=== PATIENT | female | born 1980 | race Caucasian/White ===

== ENCOUNTER 2017-06-08 17:04 | Day surgery (SDC) | payer BC ==
[2017-06-08] MEDS ORDERED: Sodium Chloride 0.9% 2.5 ML Syringe FLUSH PRN (17:06)
[2017-06-08] MEDS ORDERED: Sodium Chloride 0.9% 10 ML Syringe FLUSH PRN (17:06)
[2017-06-08] MEDS ORDERED: fentaNYL 100 MCG/2 ML SDV ONE ×2 (17:28→19:06)
[2017-06-08] MEDS ORDERED: Ondansetron 4 MG/2 ML SDV ONE (17:28)
[2017-06-08] MEDS ORDERED: Midazolam 1 MG/ML 2 ML SDV ONE (17:28)
[2017-06-08] MEDS ORDERED: Propofol 200 MG/20 ML SDV ONE (17:28)
[2017-06-08] MEDS ORDERED: Lidocaine 2% 5 ML SDV ONE (17:28)
[2017-06-08] MEDS ORDERED: Rocuronium 10 MG/ML 10 ML Syringe ONE (17:28)
[2017-06-08] MEDS ORDERED: Succinylcholine/Normal Saline 200 MG/10 ML Syringe ONE (17:28)
[2017-06-08] MEDS ORDERED: Vasopressin 20 Units/1 ML MDV ONE ×2 (17:29→20:20)
[2017-06-08] MEDS ORDERED: Bupivacaine 0.25% 10 ML SDV ONE (17:30)
[2017-06-08] MEDS ORDERED: ePHEDrine 50 MG/ML SDV ONE (18:36)
--- NOTE | 2017-06-08 18:42 | PCM.PREANE ---
Preanesthetic Assessment - Anesthesia/Transfusion/Family Hx Anesthesia History: Prior Anesthesia Without Reaction Family History of Anesthesia Reaction: No Transfusion History: No Prior Transfusion(s) - Review of Systems General: No Symptoms Pulmonary: No Symptoms Cardiovascular: No Symptoms Gastrointestinal: No Symptoms Neurological: No Symptoms Other: Reports: None - Physical Assessment NPO Status Date: 06/08/17 NPO Status Time: 13:30 ASA Class: 2E Mental Status: Alert & Oriented x3 Airway Class: Mallampati = 1 Dentition: Reports: Broken Tooth/Teeth Thyro-Mental Finger Breadths: 3 Mouth Opening Finger Breadths: 3 ROM/Head Extension: Full Lungs: Clear to Auscultation, Normal Respiratory Effort Cardiovascular: Regular Rate, Regular Rhythm - Lab Values: Laboratory Last Values WBC 7.68 K/uL (4.0-11.0) 06/08/17 17: RBC 4.36 M/uL (4.30-5.90) 06/08/17 17: Hgb 12.3 g/dL (12.0-16.0) 06/08/17 17: Hct 35.4 % (36.0-46.0) L 06/08/17 17: MCV 81.2 fL (80.0-98.0) 06/08/17 17: MCH 28.2 pg (27.0-32.0) 06/08/17 17: MCHC 34.7 g/dL (31.0-37.0) 06/08/17 17: RDW Std Deviation 41.3 fl (28.0-62.0) 06/08/17: RDW Coeff of Red 14 % (11.0-15.0) 06/08/17 17: Plt Count 226 K/uL (150-400) 06/08/17 17: MPV 9.90 fL (7.40-12.00) 06/08/17: Nucleated RBC % 0.0 /100WBC 06/08/17: Nucleated RBCs # 0 K/uL 06/08/17 17: HCG, Quant 3076.4 mIU/mL 06/08/17 17: Blood Type A POSITIVE 06/08/17: Antibody Screen NEGATIVE 06/08/17: - Allergies Allergies/Adverse Reactions: Allergies Allergy/AdvReac Type Severity Reaction Status Date / Time No Known Allergies Allergy Verified 06/08/17 18:31 - Acknowledgements Anesthesia Type Planned: General Anesthesia (with RSI for full stomach) Pt an Appropriate Candidate for the Planned Anesthesia: Yes Alternatives and Risks of Anesthesia Discussed w Pt/Guardian: Yes Pt/Guardian Understands and Agrees with Anesthesia Plan: Yes PreAnesthesia Questionnaire HEENT History: Reports: None Cardiovascular History: Reports: None Respiratory History: Reports: None Gastrointestinal History: Reports: None Genitourinary History: Reports: None Musculoskeletal History: Reports: None Neurological History: Reports: None Psychiatric History: Reports: Anxiety, Depression Endocrine/Metabolic History: Reports: None Hematologic History: Reports: None Immunologic History: Reports: None Oncologic (Cancer) History: Reports: None Dermatologic History: Reports: None - Infectious Disease History Infectious Disease History: Reports: None - Past Surgical History Other HEENT Surgeries/Procedures: Bilateral Ear Tubes - CURRENT (IN HOUSE) MEDS Current Meds: Current Medications Sodium Chloride (Saline Flush) 10 ml FLUSH ASDIRECTED PRN PRN Reason: Keep Vein Open Sodium Chloride (Saline Flush) 2.5 ml FLUSH ASDIRECTED PRN PRN Reason: Keep Vein Open Discontinued Medications Bupivacaine HCl (Sensorcaine-Mpf 0.25%) Confirm Administered Dose 20 ml .ROUTE .STK-MED ONE Stop: 06/08/17 17:31 Fentanyl (Sublimaze) Confirm Administered Dose 200 mcg .ROUTE .STK-MED ONE Stop: 06/08/17 17:29 Lidocaine (Xylocaine-Mpf 2%) Confirm Administered Dose 5 ml .ROUTE .STK-MED ONE Stop: 06/08/17 17:29 Midazolam HCl (Versed 1 Mg/Ml) Confirm Administered Dose 2 mg .ROUTE .STK-MED ONE Stop: 06/08/17 17:29 Ondansetron HCl (Zofran) Confirm Administered Dose 4 mg .ROUTE .STK-MED ONE Stop: 06/08/17 17:29 Propofol (Diprivan 20 Ml) Confirm Administered Dose 200 mg .ROUTE .STK-MED ONE Stop: 06/08/17 17:29 Rocuronium [place] (Zemuron) Confirm Administered Dose 100 mg .ROUTE .STK-MED ONE Stop: 06/08/17 17:29 Succinylcholine Chloride (Succinylcholine In Ns Pf) Confirm Administered Dose 200 mg .ROUTE .STK-MED ONE Stop: 06/08/17 17:29 Vasopressin (Vasopressin) Confirm Administered Dose 20 units .ROUTE .STK-MED ONE Stop: 06/08/17 17:30
[2017-06-08] MEDS ORDERED: fentaNYL 100 MCG/2 ML SDV IVPUSH PRN (19:35)
[2017-06-08] MEDS ORDERED: Ketorolac 30 MG/ML SDV ONE (19:40)
--- NOTE | 2017-06-08 20:34 | PCM.POSTAN ---
POST ANESTHESIA ASSESSMENT - MENTAL STATUS Mental Status: Alert, Oriented - RESPIRATORY Respiratory Status: Respiratory Rate WNL, Airway Patent, O2 Saturation Stable - CARDIOVASCULAR CV Status: Pulse Rate WNL, Blood Pressure Stable - GASTROINTESTINAL GI Status: No Symptoms - POST OP HYDRATION Hydration Status: Adequate & Stable
--- NOTE | 2017-06-08 20:37 | PCM.OPNOTE ---
- General Post-Op/Procedure Note Date of Surgery/Procedure: 06/08/17 Operative Procedure(s): suction dilation and curettage laparoscopic right salpingostomy for ectopic . Findings: right tubal ectopic , unruptured. Pre Op Diagnosis: right tubal ectopic Post-Op Diagnosis: Same Anesthesia Technique: General ET Tube Primary Surgeon: Aletha Ferreira Anesthesia Provider: Owen Grewal Pathology: uterine contents, right tubal contents Fluid Replacement, Intraop: 1,500 EBL in mLs: 20 Complications: None Known Condition: Good Free Text/Narrative:: Intake & Output 06/08/17 06/08/17 06/08/17 06:59 14:59 22:59 Intake Total 1899 Balance 190
[2017-06-08 23:42] VITALS: BP 112/59
--- NOTE | 2017-06-08 23:45 | PCM48HPAN ---
Post Anesthesia Note - EVALUATION WITHIN 48HRS OF ANESTHETIC Vital Signs in Normal Range: Yes Patient Participated in Evaluation: Yes Respiratory Function Stable: Yes Airway Patent: Yes Cardiovascular Function Stable: Yes Hydration Status Stable: Yes Pain Control Satisfactory: Yes Nausea and Vomiting Control Satisfactory: Yes Mental Status Recovered: Yes
--- NOTE | 2017-06-09 01:40 | OR ---
SURGEON: Aletha Ferreira M.D. DATE OF PROCEDURE: 06/08/2017 PREOPERATIVE DIAGNOSIS: Right tubal ectopic . POSTOPERATIVE DIAGNOSIS: Right tubal ectopic . PROCEDURE: DICTATION ENDS HERE VENTURA ROE /[id number]
--- NOTE | 2017-06-09 02:00 | OR ---
SURGEON: Aletha Ferreira M.D. DATE OF PROCEDURE: 06/08/2017 PREOPERATIVE DIAGNOSIS: Right tubal ectopic . POSTOPERATIVE DIAGNOSIS: Right tubal ectopic . PROCEDURE: Laparoscopic right salpingostomy with suction D and C. ANESTHESIA: General endotracheal. ESTIMATED BLOOD LOSS: Less than 20 mL. FLUIDS: 1500 mL crystalloid. FINDINGS: Normal-appearing left tube and ovary. Normal-appearing right ovary. There was an ectopic in the mid right tube. COMPLICATIONS: None known. DISPOSITION: Stable to recovery. INDICATIONS: This is a 37-year-old female. She has presented with vaginal bleeding over the past week. She has an abnormally rising HCG level, which is now over 2600 with no intrauterine and a 2.1 cm ectopic in the right tube. She was offered methotrexate versus salpingostomy versus salpingectomy with salpingectomy being 100% cure of the ectopic but slightly decreasing her likelihood of successful in the future, salpingostomy requiring followup with HCG levels and at up to 15% risk of recurrence, and methotrexate also requiring close followup. After discussing options as she is a candidate for any of the three options, she desires to proceed with right salpingostomy with a possible right salpingectomy and a suction D and C. Risks were discussed including bleeding; infection; injury to bowel, bladder, blood vessels, ureters, or other organs; risks of thromboembolic event; and risk of anesthesia. Understanding all these risks, she does desire to proceed. DESCRIPTION OF PROCEDURE: With the patient in dorsal lithotomy position, under adequate general endotracheal anesthesia, the abdomen was prepped with chlorhexidine. The perineum and vagina were prepped with Betadine and draped in the usual fashion for laparoscopic surgery. Bimanual examination revealed an 8-week size anteverted uterus. Speculum was placed in the vagina. The cervix was dilated to an 8 mm Hegar dilator, and the suction curette was placed. An appropriate time-out was held and prior to starting the procedure, a suction curette was placed to the uterine fundus and retracted repetitively with a small amount of whitish tissue obtained. 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 2 mL of 0.25% Marcaine was injected inferior to the umbilicus. A vertical 5 mm incision was made with a scalpel and the anterior abdominal wall was elevated. A Veress needle was inserted. Hanging drop test confirmed intraperitoneal placement, and opening pressure of CO2 was 3 mmHg. A 5 mm port was placed inferior to the umbilicus. The laparoscope was placed into the abdominal cavity. There was no evidence of any trauma to the internal organs with the port placement. The uterus was elevated. Findings were as noted above. Two additional ports were placed 2 cm medial and cephalad from the anterior-superior iliac spine on the right and the left. Dilute vasopressin was injected beneath the site of the ectopic in the mesosalpinx. Electrocautery was used to open the tube and with a grasper, the ectopic was removed. The umbilical port was enlarged to 10 mm to accept the EndoCatch bag which was then utilized to remove the ectopic tissue. The pelvis was then copiously irrigated. There was no active bleeding. Therefore, the abdomen was desufflated. All the instruments were removed, the ports were removed, and the fascia was reapproximated with a [id number] suture of 0 Polysorb, and the skin was closed with a subcuticular suture of 4-0 Monocryl. The ZUMI uterine manipulator was removed from the vagina. Final sponge, needle, and instrument counts were reported as correct. There were no known complications. The patient was transferred to recovery in good condition. VENTURA ROE /[id number]
== END 2017-06-08 22:55 | disposition home or self-care (01) ==
LOC: MW.SDS 17:04 → MW.MS 17:08 → MW.SDS 22:55
PROVIDERS: ATTEND Obstetrics & Gynecology
DX: O00.101 Right tubal pregnancy without intrauterine pregnancy (principal); K58.9 Irritable bowel syndrome, unspecified; F41.9 Anxiety disorder, unspecified; F32.9 Major depressive disorder, single episode, unspecified; Z79.899 Other long term (current) drug therapy; Z98.890 Other specified postprocedural states; Z87.891 Personal history of nicotine dependence
CPT/HCPCS: 36415; 59150; 84702; 85027; 86850; 86900; 86901; 88305; J1885; J2250; J2405; J3010; 00840; J2704